=== PATIENT | female | born 1970 | race African-American/Black ===

== ENCOUNTER 2019-04-23 13:04 | Day surgery (SDC) | payer MEDICARE, OTHER ==
[~2019-04-23 13:04] MED LIST: BUPIVACAINE HCL 0.5% (5MG/ML) PF 10ML VIAL IV ONE; LACTATED RINGERS 1,000 ML IV.SOLN IV ONE; LIDOCAINE HCL 1% PF 300MG/30ML VIAL ONE; LIDOCAINE HCL 2% PF 100MG/5ML VIAL IJ ONE; MIDAZOLAM HCL 2 MG/2 ML VIAL ONE; fentaNYL CITRATE/PF 100 MCG/2 ML INJ. ONE; methylPREDNISolone ACETATE 80 MG/ML VIAL IM ONE
== END 2019-04-23 17:45 | disposition home or self-care (01) ==
LOC: OPSURG 13:04
DX: M47.816 Spondylosis without myelopathy or radiculopathy, lumbar region (principal); M54.5 Low back pain
CPT/HCPCS: 64635; 64636; J1040; J2001; J2250; J3010; J3490; J7120

== ENCOUNTER 2019-06-25 07:04 | Day surgery (SDC) | payer MEDICARE, OTHER ==
[2019-06-25] MEDS ORDERED: methylPREDNISolone ACETATE 80 MG/ML VIAL IM ONE (08:48)
[2019-06-25] MEDS ORDERED: LACTATED RINGERS 1,000 ML IV.SOLN IV ONE (08:48)
[2019-06-25] MEDS ORDERED: MIDAZOLAM HCL 2 MG/2 ML VIAL ONE (08:48)
[2019-06-25] MEDS ORDERED: LIDOCAINE HCL 1% PF 300MG/30ML VIAL ONE (08:48)
[2019-06-25] MEDS ORDERED: fentaNYL CITRATE/PF 100 MCG/2 ML INJ. ONE (08:48)
[2019-06-25] MEDS ORDERED: BUPIVACAINE HCL 0.5% (5MG/ML) PF 10ML VIAL IV ONE (08:48)
[2019-06-25] MEDS ORDERED: LIDOCAINE HCL 2% PF 100MG/5ML VIAL IJ ONE (08:48)
== END 2019-06-25 10:30 | disposition home or self-care (01) ==
LOC: OPSURG 07:04
DX: M47.816 Spondylosis without myelopathy or radiculopathy, lumbar region (principal); M54.5 Low back pain
CPT/HCPCS: 64635; 64636; J1040; J2001; J2250; J3010; J3490; J7120